=== PATIENT | female | born 1940 | race Caucasian/White ===

== ENCOUNTER 2021-11-01 14:35 | Day surgery (SDC) | payer MEDICARE, BC ==
[~2021-11-01] VITALS: Ht 170.2 cm; Wt 81.1 kg
[2021-11-01] VITALS (10 sets, daily range): BP systolic 114–154; BP diastolic 67–96
[2021-11-01] MEDS ORDERED: MIDAZolam 1mg/ml 10ml vial IV ONE (15:10)
[2021-11-01] MEDS ORDERED: fentaNYL/PF 50MCG/1 ML 2ML syringe IV ONE (15:10)
[2021-11-01] MEDS ORDERED: normal saline 1000ml 1,000 ML IV SCH (15:10)
[2021-11-01] MEDS ORDERED: EZET-61 PO (15:18)
[2021-11-01] MEDS ORDERED: APIX5TAB3 PO (15:18)
[2021-11-01] MEDS ORDERED: SOTA80TA73 PO (15:18)
[2021-11-01] MEDS ORDERED: ZINC PO (15:36)
[2021-11-01] MEDS ORDERED: LEVO100T PO (15:36)
[2021-11-01] MEDS ORDERED: LOSA100T57 PO (15:36)
[2021-11-01] MEDS ORDERED: CHOL100046 PO (15:36)
== END 2021-11-01 17:30 | disposition home or self-care (01) ==
LOC: SSTAY O 14:35
PROVIDERS: ATTEND Internal Medicine Interventional Cardiology
DX: I48.91 Unspecified atrial fibrillation (principal); E03.9 Hypothyroidism, unspecified; E78.5 Hyperlipidemia, unspecified; I34.0 Nonrheumatic mitral (valve) insufficiency; I11.9 Hypertensive heart disease without heart failure; Z85.72 Personal history of non-Hodgkin lymphomas; Z88.0 Allergy status to penicillin; Z79.899 Other long term (current) drug therapy; Z79.01 Long term (current) use of anticoagulants
CPT/HCPCS: 92960; 93005; 94760; 94799; J2250; J3010; J7030